=== PATIENT | male | born 1985 | race Caucasian/White ===

== ENCOUNTER 2018-05-20 16:10 | Emergency (ER) | payer MEDICAID ==
[~2018-05-20] VITALS: Ht 185.4 cm; Wt 67.3 kg
[2018-05-20 16:16] VITALS: Ht 185.4 cm; Wt 67.3 kg
[2018-05-20 19:20] VITALS: BP 108/72
== END 2018-05-20 19:24 | disposition left against medical advice (07) ==
LOC: D.ER 16:10
DX: M25.551 Pain in right hip (principal); F17.200 Nicotine dependence, unspecified, uncomplicated